=== PATIENT | female | born 1995 | race Caucasian/White ===

== ENCOUNTER 2017-11-23 20:23 | Emergency (ER) | payer OTHER ==
[~2017-11-23] VITALS: Ht 165.1 cm; Wt 61.4 kg
[2017-11-23 20:28] VITALS: TEMP 97.8
[2017-11-23] MEDS ORDERED: ESTRACE2 MG PO (20:31)
[2017-11-23] MEDS ORDERED: DOXYCYCLINE HY100 MG PO (20:32)
[2017-11-23 22:43] VITALS: BP 128/82; PULSE 71
== END 2017-11-23 22:44 | disposition home or self-care (01) ==
LOC: COL.ER 20:23
DX: R51 Headache (principal); Z98.890 Other specified postprocedural states
CPT/HCPCS: J1885; J2550; J7030

== ENCOUNTER 2018-04-04 13:29 | Outpatient (RCR) | payer OTHER ==
[~2018-04-04 13:29] MED LIST: DOXYCYCLINE HY100 MG PO; ESTRACE2 MG PO
== END 2018-04-04 13:49 | disposition home or self-care (01) ==
LOC: WSC 13:29 → WSPT 13:45 → WSC 13:49
DX: Z01.818 Encounter for other preprocedural examination (principal)

== ENCOUNTER 2018-05-30 07:30 | Outpatient (RCR) | payer OTHER | END 2018-07-14 | disposition home or self-care (01) | LOC: WSPT | DX: M76.32 Iliotibial band syndrome, left leg (principal) ==